=== PATIENT | male | born 1980 | race Two or more races ===

== ENCOUNTER 2024-09-15 20:19 | Emergency (ER) | payer MEDICAID, SELFPAY ==
[2024-09-15 20:21] VITALS: BP 129/84; PULSE 84; RESP 17; TEMP 37.1; O2SAT 95; BMI 22.6
--- NOTE | 2024-09-15 21:05 | PC.NURSE ---
poison control called at this time. per poison control they recommended to treat symptoms, and obtain blood work, cmp, cbc since the possible cause is unknown.
[2024-09-15 21:44] LABS: Basophils # (Auto) 0.0 Thou/mm3 (0.0-0.2); Basophils % (Auto) 0 % (0-2.5); Eosinophils # (Auto) 0.0 Thou/mm3 (0.0-0.5); Eosinophils % (Auto) 0 % (0-10); Hematocrit 42.7 % (41.0-53.0); Hemoglobin 14.5 g/dL (13.5-16.0); Immature Granulocytes Auto 0.02 Thou/mm3 (0.00-0.00); Lymphocytes # (Auto) 0.8 Thou/mm3 (1.0-4.8); Lymphocytes % (Auto) 10 % (10-50); Mean Corpuscular HGB Conc 34.0 g/dl (31.0-37.0); Mean Corpuscular Hemoglobin 31.5 pg (25.0-35.0); Mean Corpuscular Volume 93 fL (80-100); Monocytes # (Auto) 0.8 Thou/mm3 (0.0-0.8); Monocytes % (Auto) 10 % (0-12); Neutrophils # (Auto) 6.5 Thou/mm3 (1.8-7.7); Neutrophils % (Auto) 80 % (37-80); Nucleated Red Blood Cell # 0.00 Thou/mm3 (0.00-0.00); Nucleated Red Blood Cell % 0 /100 WBC (0); Platelet Count 311 Thou/mm3 (140-440); RDW Standard Deviation 51.8 fL (35.1-43.9); Red Blood Count 4.61 Miln/mm3 (4.50-5.90); White Blood Count 8.1 Thou/mm3 (3.8-10.6)
[2024-09-15 21:59] LABS: Amphetamine/Methamp Scrn,U Positive (Negative); Barbiturate Screen,Urine Negative (Negative); Benzodiazepines Screen,Urine Negative (Negative); Benzoylecgonine Screen, Ur Negative (Negative); Fentanyl Screen,Urine Positive (Negative); Opiate Screen,Urine Negative (Negative); THC Screen,Urine Negative (Negative)
[2024-09-15 22:06] LABS: Carbon Dioxide 23.3 mMol/L (20.0-31.0); Chloride 98 mMol/L (98-107); Potassium 3.7 mMol/L (3.4-5.1); Sodium 136 mMol/L (136-145)
[2024-09-15] MEDS: ONDANSETRON INJ 2 MG/ML INJ 2 ML 4 MG IV (22:06)
[2024-09-15] MEDS: LORazepam 2 MG/ML VIAL IVP (22:06)
[2024-09-15 22:07] LABS: Alanine Aminotransferase 186 U/L (10-49); Albumin, Serum 5.0 gm/dL (3.5-5.0); Albumin/Globulin Ratio 1.8 (1.2-2.2); Alcohol, Blood Medical < 3.0 mg/dL (0-10.0); Alkaline Phosphatase 94 U/L (46-116); Anion Gap 15 (7-16); Aspartate Amino Transferase 412 U/L (0-34); BUN/Creatinine Ratio 17 Ratio (12-20); Bilirubin,Total 1.3 mg/dL (0.3-1.2); Blood Urea Nitrogen 22 mg/dL (9-23); Calcium 9.0 mg/dL (8.3-10.6); Calcium (Corrected) 9.0 mg/dL (8.5-10.1); Creatinine (Component) 1.3 mg/dL (0.6-1.3); Estimated Creatinine Clearance 64.5 mL/min (>60); Globulin 2.8 gm/dL (2.3-3.5); Glucose 146 mg/dL (74-106); Osmolality,Calculated 278 (275-295); Total Protein 7.8 gm/dL (5.7-8.2); eGFR > 60 See Note
[2024-09-15] MEDS: SODIUM CHLORIDE 0.9% 1000 ML 1,000 ML 999 ML IV (22:07)
--- NOTE | 2024-09-15 22:49 | PD.EDSKIN ---
ED Skin Abcess FB-RME/HPI General Chief complaint: General Adult/Misc Complain Stated complaint: STATES SPIDER BITE Time Seen by Provider: 09/15/24 20:45 Arrival date/time: 09/15/24 20:19 44M with history of drug/alcohol use presents to ED with L forearm and L eyebrow insect/spider bite. Patient also has N/V and LLE tingling and numbness. Patient states this doesn't feel like alcohol withdrawal. Patient has had a tetanus shot in the past 5 years. Limitations: no limitations Related Data Previous Rx's ?Medication ?Instructions ?Recorded hydrocodone 5 mg-acetaminophen 325 1 tab PO Q6H PRN pain #20 tabs 05/30/22 mg tablet Allergies Allergy/AdvReac Type Severity Reaction Status Date / Time No Known Allergies Allergy Verified 09/15/24 20:25 Review of Systems Review of Systems Systems Reviewed: All systems reviewed, normal except as documented Constitutional Constitutional: Reports system reviewed and no additional complaints, except as documented, Denies fever(s) and Denies headache(s) ENT Ears, Nose, Mouth, and Throat: Denies disequilibrium and Denies headache(s) Cardiovascular Cardiovascular: Reports system reviewed and no additional complaints, except as documented, Denies chest pain and Denies dyspnea Respiratory Respiratory: Reports system reviewed and no additional complaints, except as documented, Denies cough and Denies dyspnea Gastrointestinal Gastrointestinal: Reports system reviewed and no additional complaints, except as documented, Reports as per HPI, Denies abdominal pain, Reports nausea and Reports vomiting Musculoskeletal Musculoskeletal: Reports numbness and Reports tingling Integumentary/Breasts Skin/Breast: Reports as per HPI and Reports skin pain Neurologic Neurologic: Reports system reviewed and no additional complaints, except as documented, Reports as per HPI, Denies confusion, Denies disequilibrium, Denies headache(s), Reports numbness and Reports tingling Psychiatric Psychiatric: Denies confusion Past Medical History Past Medical History CARDIAC: Negative Congestive Heart Failure RESPIRATORY: Negative Chronic Obstructive Pulmonary Disease (COPD) GENITOURINARY: Negative Renal Disease ENDOCRINE: Negative Diabetes Mellitus Type 1 or Diabetes Mellitus Type 2 Social History SMOKING STATUS: Never smoker SUBSTANCE USE: does not use ED Exam General Limitations: Present no limitations General appearance: Present alert and in no apparent distress Head Head exam: Present other (bite floyd on L eyebrow area) Eye Eye exam: Present normal appearance, PERRL and EOMI ENT ENT exam: Present normal exam, normal oropharynx and mucous membranes moist Neck Neck exam: Present normal inspection, full ROM and trachea midline Chest Chest inspection: Present normal inspection and symmetric chest wall rise Respiratory Respiratory exam: Present normal lung sounds bilaterally Cardiovascular Cardiovascular exam: Present regular rate, normal rhythm and normal heart sounds Abdominal Exam Abdominal exam: Present soft and normal bowel sounds Extremities Exam Extremities exam: Present full ROM Expanded Upper Extremity Exam Forearm/Wrist exam: Present full ROM and other (bite floyd on L forearm) Back Exam Back exam: Present normal inspection and full ROM Neurological Exam Neurological exam: Present alert, oriented X3 and CN II-XII intact Psychiatric Psychiatric exam: Present normal affect and normal mood Skin Skin exam: Present warm, dry, intact and normal color Course Quality Measures none Orders Category Date Time Status Insert IV NOW Care 09/15/24 20:47 Completed Alcohol, Blood Medical Stat Lab 09/15/24 21:29 Completed CBC Stat Lab 09/15/24 21:29 Completed CMP [Comprehensive Metabolic Panel] Stat Lab 09/15/24 21:29 Completed Drug Screen,Urine Stat Lab 09/15/24 21:27 Completed LORazepam [Ativan Inj] Med 09/15/24 20:46 Discontinued 2 mg IVP X1 ONE Morphine Inj Med 09/15/24 20:46 Discontinued 5 mg IVP X1 ONE Ondansetron Inj [Zofran Inj] Med 09/15/24 20:46 Discontinued 4 mg IV X1 ONE Sodium Chloride 0.9% 1000 ml [Ns] 1,000 ml Med 09/15/24 20:46 Discontinued IV 999 mls/hr Vital Signs Vital signs: Vital Signs Temperature 98.8 F 09/15/24 20:21 Pulse Rate 84 09/15/24 20:21 Respiratory Rate 17 09/15/24 20:21 Blood Pressure 129/84 09/15/24 20:21 Pulse Oximetry (%) 95 09/15/24 20:21 O2 at 95% on RA and WNLs Skin / Abscess / Foreign Body MDM Narrative MDM Narrative:: 44M with history of drug/alcohol use presents to ED with L forearm and L eyebrow insect/spider bite. Patient also has N/V and LLE tingling and numbness. Patient states this doesn't feel like alcohol withdrawal. Patient has had a tetanus shot in the past 5 years. Physical exam reveals bite floyd on L forearm and L eyebrow area with some surrounding redness and blistering. Patient is afebrile, alert, but actively having N/V. Poison control called. They recommended symptomatic control and basic lab work. CBC and CMP unremarkable. Fetanyl and meth+. Meds improved symptoms. Patient data External records reviewed:: [facility] previous records Clinical information provided by:: patient Social determinants that could affect healthcare access:: substance use Patient has the following chronic illnesses:: drug/alcohol How is presenting disease/condition affected by chronic disease/condition?: exacerbated by Evaluation data The following diagnostics were reviewed and interpreted by me:: lab results Lab and/or radiology exams considered but not ordered:: ordered Interpretation Summary: above Medications / Prescriptions Medications or Prescriptions considered but not ordered:: ordered Medication administrations:: Medication Administration History Discontinued Medications Sodium Chloride (Ns) 1,000 mls @ 999 mls/hr IV .Q1H1M ONE Stop: 09/15/24 21:46 Last Infusion: 09/15/24 23:36 Dose: Infused Documented By: Admin: 09/15/24 22:07 Dose: 999 mls/hr Documented By: VL Lorazepam (Lorazepam 2 Mg/Ml Vial) 2 mg IVP X1 ONE Stop: 09/15/24 20:47 Last Admin: 09/15/24 22:06 Dose: 2 mg Documented By: VL Morphine Sulfate (Morphine Sulf Inj 10 Mg/Ml Vial) 5 mg IVP X1 ONE Stop: 09/15/24 20:47 Last Admin: 09/15/24 22:06 Dose: Not Given Documented By: SOLO Non-Admin Reason: Cancelled by Provider Ondansetron HCl (Ondansetron Inj 2 Mg/Ml Inj 2 Ml) 4 mg IV X1 ONE; Protocol Stop: 09/15/24 20:47 Last Admin: 09/15/24 22:06 Dose: 4 mg Documented By: SOLO above Consultations Consultation(s) initiated? (list below): No Diagnosis Skin/Abscess Differential Diagnosis: abscess of skin or subcutaneous tissue, viral exanthem, dermatophytosis, urticaria, herpes zoster, allergic reaction to drug, cellulitis, eczema, insect bites, impetigo and contact dermatitis Most likely diagnosis given after review of the tests above:: insect bite Admission Indicated Admission indicated?: not indicated Admission Request Was there a request for admission?: No Disposition Plan Disposition Plan: Discharge Discharge Attestation Discharge Attestation: The patient and all family members were given an opportunity to ask questions and understood the discharge instructions. Discharge instructions specifically effects, indications for sooner follow up or return to the emergency department, and the expected course of current diagnosis. Patient condition: Stable Discharge Plan Plan Patient Disposition: HOME (Self Care) Discharge Disposition comment: Stable Prescriptions/Referrals Prescriptions/Med Rec: No Action hydrocodone-acetaminophen 5-325 mg tablet 1 tab PO Q6H MDD 4 PRN (Reason: pain) Qty: 20 0RF Referrals: No Primary/Family,Physician [Primary Care Provider] - In 1 week Problem List Clinical Impression: Insect bite Patient/Caregiver Discharge Instructions Education Materials: ED Insect Bite Additional Instructions: Please follow-up with PCP within 24-48 hours and return immediately if symptoms worsen. Print Language: Czech Stand Alone Forms: Patient Portal Info Letter SARAY/EVELINA Supervising Physician SARAY/EVELINA Supervising Physician: Dr. Jules
[2024-09-15 23:37] VITALS: BP 124/78; PULSE 77; RESP 16; O2SAT 99
== END 2024-09-15 23:39 | disposition home or self-care (01) ==
PROVIDERS: Physician Assistant; Emergency Provider Emergency Medicine
DX: S00.262A Insect bite (nonvenomous) of left eyelid and periocular area, initial encounter (principal); S50.862A Insect bite (nonvenomous) of left forearm, initial encounter; W57.XXXA Bitten or stung by nonvenomous insect and other nonvenomous arthropods, initial encounter
CPT/HCPCS: 36415; 80053; 80307; 80320; 85025; 96361; 96374; 96375; 99283; J2060; J2405; J7030; G0480

== ENCOUNTER 2024-12-18 23:53 | Emergency (ER) | payer SELFPAY ==
[2024-12-18 23:56] VITALS: BMI 20.9
--- NOTE | 2024-12-19 00:28 | PD.EDADDENDU ---
Emergency Room Addendum Addendum Narrative: When I looked for the patient to start my evaluation, I was told the patient eloped. Setvo Jules MD
== END 2024-12-19 01:02 | disposition left against medical advice (07) ==
LOC: SERX 12-19 00:09
PROVIDERS: Emergency Provider Emergency Medicine
DX: Z53.21 Procedure and treatment not carried out due to patient leaving prior to being seen by health care provider (principal)
CPT/HCPCS: 99281